=== PATIENT | female | born 1975 | race Caucasian/White ===

== ENCOUNTER 2016-05-15 16:16 | Emergency (ER) | payer MEDICAID ==
[~2016-05-15] VITALS: Ht 165.1 cm; Wt 160.0 kg
[~2016-05-15 16:16] MED LIST: ALBU6.7H INH; ASPI81 CHEW; HYDR-2768 PO; LANTUS2P SC; LEVEMIR SQ; LEXA10TA PO; LIPI10TA PO; LISI2.5T3 PO; NICO14DI18 TD; NOVOLOGP2 SQ; RITA20TA PO; ZOLP10TA3 PO
[2016-05-15 16:17] VITALS: BP 175/91; PULSE 95; RESP 20; TEMP 98.1; O2SAT 96
[2016-05-15] MEDS ORDERED: IPRA0.06 EACH NARE (17:10)
[2016-05-15] MEDS ORDERED: AMOX875T PO (17:10)
--- NOTE | 2016-05-15 17:11 | PD ---
HPI Chief Complaint: Cold / Flu Symptoms Time Seen by Provider: 16:35 Travel History International Travel<30 days: No Contact w/Intl Traveler<30days: No Traveled to known affect area: No History of Present Illness HPI Patient is a 41 year old female presenting to the emergency room evaluation of sore throat, cough, nasal congestion. Patient states her symptoms started Saturday, she reports subjective fevers on Saturday and Saturday. Fevers have since resolved but she continues to have a cough and sore throat. Or, vomiting , chest pain, shortness of breath, abdominal pain, diarrhea. PFSH Past Medical History Hx Anticoagulant Therapy: No ADHD: Yes Asthma: Yes Blood Disorders: No Anxiety: No Depression: No Heart Rhythm Problems: No Cancer: Yes (cervical cancer 2006) Cardiovascular Problems: Yes High Cholesterol: No Chemotherapy: No Chest Pain: No Congestive Heart Failure: No COPD: No Cerebrovascular Accident: No Diabetes: Yes Diminished Hearing: No Endocrine: Yes GERD: Yes Genitourinary: No Headaches: Yes Hypertension: Yes Immune Disorder: No Musculoskeletal: No Neurologic: Yes (seizures as a child, migraines) Psychiatric: No Reproductive: Yes (leep early stage cervical cancer 2006) Respiratory: Yes Immunizations Current: Yes Migraines: Yes ("family hx") Radiation Therapy: No Seizures: Yes ("as a toddler") Sleep Apnea: No Thyroid Disease: No ?: Not LMP: 05/13/16 : 5 Para: 4 Miscarriage: 1 Tubal Ligation: Yes (2006) Past Surgical History Gynecologic Surgery: Yes (leep) Hysterectomy: No Other Surgery: Yes (tubal ligation , le) Social History Alcohol Use: No Tobacco Use: Yes Substance Use: Yes (MARIJUANA occasionally) Allergies-Medications (Allergen,Severity, Reaction): Coded Allergies: Codeine (Verified Allergy, Severe, "LETHARGIC" "VOMITING, 11/01/15) Reported Meds & Prescriptions Reported Meds & Active Scripts Active Nicotine Transdermal Syst (Nicotine) 14 Mg/24 H Dis 14 Mg TD DAILY 7 Days Lipitor 10 Mg Tab (Atorvastatin Calcium) 10 Mg Tab 10 Mg PO HS Aspirin Low Strength (Aspirin) 81 Mg Chw 81 Mg CHEW DAILY 30 Days Lexapro (Escitalopram Oxalate) 10 Mg Tab 10 Mg PO DAILY Ambien 10 Mg Tab (Zolpidem Tartrate) 10 Mg Tab 10 Mg PO HS Ritalin (Methylphenidate HCl) 20 Mg Tab 20 Tab PO BID Proventil Hfa (Albuterol Sulfate) 6.7 Gm Aero 2 Puff INH Q4H * SHAKE WELL BEFORE USE * Reported Lantus (Insulin Glargine) 100 Units/Ml Inj 20 Unit SC HS Hctz (Hydrochlorothiazide) 25 Mg Tab Unknown Dose PO DAILY Lisinopril 2.5 mg (Lisinopril) 2.5 Mg Tab 1 Tab PO DAILY Novolog (Insulin Aspart) 100 Units/Ml Inj 1 U SQ DIRECTED 150-199=1 unit 200-249= 3 units 250-299=5 units 300-349=7 units >349=9 units Levemir (Insulin Detemir) Inj 20 SQ HS Review of Systems Except as stated in HPI: all other systems reviewed are Neg General / Constitutional: No: Fever, Chills HENT: Positive: Sore Throat, Rhinitis, Congestion, No: Headaches Cardiovascular: No: Chest Pain or Discomfort Respiratory: Positive: Cough, No: Shortness of Breath, Wheezing Gastrointestinal: No: Nausea, Vomiting, Diarrhea, Abdominal Pain Musculoskeletal: No: Myalgias Physical Exam Narrative GENERAL: Well-nourished, well-developed patient. SKIN: Warm and dry. HEAD: Normocephalic. EYES: No scleral icterus. No injection or drainage. ENT: Mucosa pink and moist. Moderate erythema to posterior pharynx, no tonsillar enlargement, no exudates. No uvular edema. No uvular, palatal, or tonsillar deviation. Airway patent. Nasal turbinates appear normal without nasal blood, purulent drainage or septal hematoma. NECK: Supple, trachea midline. No JVD or lymphadenopathy. CARDIOVASCULAR: Regular rate and rhythm without murmurs, gallops, or rubs. RESPIRATORY: Breath sounds equal bilaterally. No accessory muscle use. GASTROINTESTINAL: Abdomen soft, non-tender, nondistended. MUSCULOSKELETAL: No cyanosis, or edema. BACK: Nontender without obvious deformity. No CVA tenderness. Data Data Last Documented VS Vital Signs Date Time Temp Pulse Resp B/P Pulse Ox O2 Delivery O2 Flow Rate FiO2 05/15/16 16:17 98.1 95 20 175/91 96 Room Air MDM Medical Decision Making Medical Screen Exam Complete: Yes Emergency Medical Condition: Yes Interpretation(s) Vital Signs Date Time Temp Pulse Resp B/P Pulse Ox O2 Delivery O2 Flow Rate FiO2 05/15/16 16:17 98.1 95 20 175/91 96 Room Air Differential Diagnosis Viral URI versus pharyngitis versus sinusitis versus bronchitis versus other Narrative Course Patient is a 41-year-old female presenting to emergency department for evaluation of cough and cold symptoms. Physical examination appears most consistent with a viral syndrome. Patient was encouraged to continue with symptomatic management. She was encouraged to follow-up with her primary doctor or return to emergency department for new or worsening symptoms. Patient will be given a prescription for a backup antibiotic, she was advised that if she did begin to take it that she complete the full course of therapy he had patient verbalized understanding of these instructions. She is stable for discharge. Diagnosis Primary Impression: Upper respiratory infection with cough and congestion Additional Impression: Pharyngitis Qualified Code: J02.9 - Pharyngitis, unspecified etiology Referrals: Primary Care Physician Patient Instructions: General Instructions, Pharyngitis (ED), Upper Respiratory Infection (ED) Departure Forms: Tests/Procedures, Work Release Enter return to work date: May 16, 2016 Additional Instructions: Continue symptomatic management Follow-up with a primary care doctor Return to emergency department for any new or worsening symptoms Take medications as directed Med/Other Pt SpecificInfo: Prescription(s) given Scripts Amoxicillin 875 Mg [id number] Mg PO BID 10 Days Ref 0 Prov:An Castro 05/15/16 Ipratropium Nasal 0.06% Spray1 [place] EACH NARE TID #1 BOTTLE Ref 0 Prov:An Castro 05/15/16 Disposition: 01 DISCHARGE HOME Condition: Stable An Castro May 15, 2016 17:11
== END 2016-05-15 18:04 | disposition home or self-care (01) ==
LOC: NEPB 16:16
DX: J06.9 Acute upper respiratory infection, unspecified (principal); J02.9 Acute pharyngitis, unspecified; Z72.0 Tobacco use
CPT/HCPCS: 99282

== ENCOUNTER 2017-06-01 15:40 | Emergency (ER) | payer SELFPAY ==
[~2017-06-01] VITALS: Ht 165.1 cm; Wt 145.0 kg
[~2017-06-01 15:40] MED LIST changes: +AMOX875T PO; +IPRA0.06 EACH NARE
[2017-06-01 15:49] VITALS: BP 146/89; PULSE 87; RESP 16; TEMP 98.2; O2SAT 96
[2017-06-01 16:40] LABS: BILIRUBIN, URINE NEG (NEG); BLOOD, URINE TRACE (NEG); GLUCOSE,URINE 1000 OR GREATER mg/dL (NEG); KETONE, URINE 40 mg/dL (NEG); NITRITE,URINE NEG (NEG); PH, URINE 5.5 (5.0-8.5); URINE COLOR YELLOW (YELLW/STRAW); URINE LEUKOCYTE ESTERASE NEG (NEG)
[2017-06-01 16:48] LABS: RBC, URINE 0-3 /hpf (0-3); WBC, URINE 0-2 /hpf (0-5)
[2017-06-01 16:49] LABS: BACTERIA, URINE MOD /hpf
[2017-06-01 18:00] VITALS: BP 140/84; PULSE 86; RESP 16; O2SAT 96
[2017-06-01] MEDS ORDERED: LIPI10TA PO (18:25)
[2017-06-01] MEDS ORDERED: LISI2.5T3 PO (18:25)
[2017-06-01] MEDS ORDERED: LANTUS2P SQ (18:25)
[2017-06-01] MEDS ORDERED: HUMALOG SQ (18:25)
[2017-06-01] MEDS ORDERED: DAPA1TAB PO (18:25)
[2017-06-01] MEDS ORDERED: SITA50TA4 PO (18:25)
[2017-06-01] MEDS ORDERED: DIFL150T PO (18:27)
--- NOTE | 2017-06-01 18:27 | PD ---
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 Patient has been taking [id number] treatments for presumed vaginal candidiasis without. She is diabetic, she states that she went to [place] last month and had some binging of there and since then her sugars been little bit more elevated and she has had discharge. She takes oral anti-hyperglycemics, states her blood sugar usually runs about 160. She denies any abdominal pain nausea vomiting diarrhea constipation or possibility for . Symptoms mild, duration is a month, not relieved with [id number] medications, associated signs and symptoms as above. PFSH Past Medical History Hx Anticoagulant Therapy: No ADHD: Yes Asthma: Yes Blood Disorders: No Anxiety: No Depression: No Heart Rhythm Problems: No Cancer: Yes (cervical cancer 2006) Cardiovascular Problems: Yes High Cholesterol: No Chemotherapy: No Chest Pain: No Congestive Heart Failure: No COPD: No Cerebrovascular Accident: No Diabetes: Yes Patient Takes Glucophage: No Diminished Hearing: No Endocrine: Yes Gastrointestinal Disorders: No GERD: Yes Genitourinary: No Headaches: Yes Hypertension: Yes Immune Disorder: No Implanted Vascular Access Dvce: No Musculoskeletal: No Neurologic: Yes (seizures as a child, migraines) Psychiatric: No Reproductive: Yes (leep early stage cervical cancer 2006) Respiratory: Yes Immunizations Current: Yes Migraines: Yes ("family hx") Radiation Therapy: No Seizures: Yes ("as a toddler") Sleep Apnea: No Thyroid Disease: No Influenza Vaccination: No ?: Not LMP: 04/25/17 : 5 Para: 4 Miscarriage: 1 Tubal Ligation: Yes (2006) Past Surgical History Gynecologic Surgery: Yes (leep) Hysterectomy: No Other Surgery: Yes (tubal ligation , le) Social History Alcohol Use: No Tobacco Use: Yes Substance Use: Yes (MARIJUANA occasionally) Allergies-Medications (Allergen,Severity, Reaction): Coded Allergies: codeine (Unverified Allergy, Severe, "LETHARGIC" "VOMITING, 06/01/17) Reported Meds & Prescriptions Reported Meds & Active Scripts Active Flagyl (Metronidazole) 500 Mg Tab 500 Mg PO BID 7 Days Diflucan (Fluconazole) 150 Mg Tab 150 Mg PO ONCE Take on 06/08/2017 Reported Farxiga (Dapagliflozin) 5 Mg Tab Unknown Dose PO DAILY Janumet Xr (Sitagliptin-Metformin ER) 50-1,000 Mg Tab Unknown Dose PO DAILY Lisinopril 2.5 Mg Tab 2.5 Mg PO DAILY Lipitor (Atorvastatin Calcium) 10 Mg Tab 10 Mg PO HS Lantus Inj (Insulin Glargine) 1,000 Unit/10 Ml Vial 20 Units SQ HS Humalog Inj (Insulin Human Lispro) 1,000 Unit/10 Ml Vial 2-12 Units SQ ACHS Max dose at bedtime:( )units; sugars < 70,(0)units; sugars 150-199,(2)units; sugars 200-249,(4)units; sugars 250-299,(7)units; sugars 300-349,(10)units; sugars more than 349,(12)units. Review of Systems Except as stated in HPI: all other systems reviewed are Neg Physical Exam Narrative GENERAL: Well-nourished, well-developed patient. Morbidly obese, no obvious distress SKIN: Focused skin assessment warm/dry. HEAD: Normocephalic. EYES: No scleral icterus. No injection or drainage. NECK: Supple, trachea midline. No JVD or lymphadenopathy. CARDIOVASCULAR: Regular rate and rhythm without murmurs, gallops, or rubs. RESPIRATORY: Breath sounds equal bilaterally. No accessory muscle use. GASTROINTESTINAL: Abdomen soft, non-tender, nondistended. GENITOURINARY: Exam performed with female nurse energy scheduler present all times, milky white and curd-like discharge, consistent with BV, no bimanual tenderness no cervical motion tenderness, no vaginal lesion. No vaginal bleeding, cervix is closed MUSCULOSKELETAL: No cyanosis, or edema. BACK: Nontender without obvious deformity. No CVA tenderness. Data Data Last Documented VS Vital Signs Date Time Temp Pulse Resp B/P (MAP) Pulse Ox O2 Delivery O2 Flow Rate FiO2 06/01/17 18:00 86 16 140/84 (102) 96 Room Air 06/01/17 15:49 98.2 Orders Orders Urinalysis - C+S If Indicated (06/01/17 16:24) Ed Urine Pregnancytest Poc (06/01/17 16:24) Urine Culture (06/01/17 16:30) Bedside Glucose YANI.CSUGAR (06/01/17 17:48) Fluconazole (Diflucan) (06/01/17 18:30) Wet Prep Profile (06/01/17 18:26) Gc And Chlamydia Pcr (06/01/17 18:26) Ed Discharge Order (06/01/17 18:28) Fluconazole (Diflucan) (06/01/17 18:30) Labs Laboratory Tests Test 06/01/17 16:30 06/01/17 18:25 Urine Collection Type CLEAN CATCH Urine Color YELLOW Urine Turbidity CLEAR Urine pH 5.5 Urine Specific [place] 1.025 Urine Protein NEG mg/dL Urine Glucose (UA) 1000 OR GREATER mg/dL Urine Ketones 40 mg/dL Urine Occult Blood TRACE Urine Nitrite NEG Urine Bilirubin NEG Urine Urobilinogen 0.2 MG/DL Urine Leukocyte Esterase NEG Urine RBC 0-3 /hpf Urine WBC 0-2 /hpf Urine Squamous Epithelial Cells 6-8 /hpf Urine Bacteria MOD /hpf Urine Yeast (Budding) OCC Microscopic Urinalysis Comment CULTURE INDICATED Urine Collection Time 16:30 Clue Cells (Wet Prep) NONE SEEN Vaginal Trichomonas (Wet Prep) NONE SEEN Vaginal Yeast (Wet Prep) NONE SEEN MDM Medical Decision Making Medical Screen Exam Complete: Yes Emergency Medical Condition: Yes Differential Diagnosis Hyperglycemia, BV, CV, STD peer Narrative Course Patient room to the emergency department, discussed importance of having Pap smear mandatory basis, has symptoms of BV in CV, will empirically cover both, blood sugars fairly well controlled to 60, discussed tighter control may limit these infections in the future and she needs follow-up with her primary care physician. Abdomen benign, no indication further workup at this time. She stable for discharge Diagnosis Primary Impression: Candidal vaginitis Med/Other Pt SpecificInfo: Prescription(s) given Scripts Metronidazole (Flagyl) 500 Mg Tab 500 MG PO BID for Infection for 7 Days, #14 TAB 0 Refills Prov: Sulaiman Sandy MD 06/01/17 Fluconazole (Diflucan) 150 Mg Tab 150 MG PO ONCE for Infection, #1 TAB 0 Refills Take on 06/08/2017 Prov: Sulaiman Sandy MD 06/01/17 Disposition: 01 DISCHARGE HOME Condition: Stable Sulaiman Sandy MD Jun 01, 2017 18:27
[2017-06-01] MEDS ORDERED: METR-1 PO (18:28)
[2017-06-01] MEDS ORDERED: FLUCONAZOLE 200 MG TAB PO ONE (18:30)
[2017-06-01] MEDS ORDERED: FLUCONAZOLE 100 MG TAB PO ONE (18:30)
== END 2017-06-01 18:43 | disposition home or self-care (01) ==
LOC: PHED 15:40
DX: B37.3 Candidiasis of vulva and vagina (principal); R82.99 Other abnormal findings in urine; E11.9 Type 2 diabetes mellitus without complications; J45.909 Unspecified asthma, uncomplicated; F90.9 Attention-deficit hyperactivity disorder, unspecified type; E66.01 Morbid (severe) obesity due to excess calories; I10 Essential (primary) hypertension; K21.9 Gastro-esophageal reflux disease without esophagitis; Z85.41 Personal history of malignant neoplasm of cervix uteri; Z72.0 Tobacco use; Z79.4 Long term (current) use of insulin
CPT/HCPCS: 81001; 84703; 87086; 87210; 87491; 87591; 99283

== ENCOUNTER 2017-06-14 22:49 | Emergency (ER) | payer MEDICAID ==
[~2017-06-14] VITALS: Ht 165.1 cm; Wt 150.0 kg
[~2017-06-14 22:49] MED LIST changes: -ALBU6.7H INH; -AMOX875T PO; -ASPI81 CHEW; +DAPA1TAB PO; +DIFL150T PO; +HUMALOG SQ; -HYDR-2768 PO; -IPRA0.06 EACH NARE; -LANTUS2P SC; +LANTUS2P SQ; -LEVEMIR SQ; -LEXA10TA PO; +METR-1 PO; -NICO14DI18 TD; -NOVOLOGP2 SQ; -RITA20TA PO; +SITA50TA4 PO; -ZOLP10TA3 PO
[2017-06-14 22:59] VITALS: BP 164/84; PULSE 88; RESP 16; TEMP 98.5; O2SAT 96
--- NOTE | 2017-06-15 00:44 | PD ---
HPI Chief Complaint: Diabetic Time Seen by Provider: 00:31 Travel History International Travel<30 days: No Contact w/Intl Traveler<30days: No Traveled to known affect area: No History of Present Illness HPI 42-year-old female complains of elevated blood sugar. Patient's diabetic and ran out of her medication for the past 3 weeks. Patient was on Humalog, Lantus , Janumet, Farxigar. Patient states that her blood sugar at home has been running between 350-560. Patient denies any headache. Patient denies any chest pain or shortness of breath. Patient denies any coughing congestion. Patient denies abdominal pain. Patient denies any nausea vomiting diarrhea. Patient denies any dysuria. PFSH Past Medical History Hx Anticoagulant Therapy: No ADHD: Yes Asthma: Yes Blood Disorders: No Anxiety: No Depression: No Heart Rhythm Problems: No Cancer: Yes (cervical cancer 2006) Cardiovascular Problems: Yes High Cholesterol: No Chemotherapy: No Chest Pain: No Congestive Heart Failure: No COPD: No Cerebrovascular Accident: No Diabetes: Yes Patient Takes Glucophage: No Diminished Hearing: No Endocrine: Yes Gastrointestinal Disorders: No GERD: Yes Genitourinary: No Headaches: Yes Hypertension: Yes Immune Disorder: No Implanted Vascular Access Dvce: No Musculoskeletal: No Neurologic: Yes (seizures as a child, migraines) Psychiatric: No Reproductive: Yes (leep early stage cervical cancer 2006) Respiratory: Yes Immunizations Current: Yes Migraines: Yes ("family hx") Radiation Therapy: No Seizures: Yes ("as a toddler") Sleep Apnea: No Thyroid Disease: No Tetanus Vaccination: Unknown Influenza Vaccination: No ?: Not LMP: 06/12/2017 : 5 Para: 4 Miscarriage: 1 Tubal Ligation: Yes (2006) Past Surgical History Gynecologic Surgery: Yes (leep) Hysterectomy: No Other Surgery: Yes (tubal ligation ', leAP) Social History Alcohol Use: No Tobacco Use: Yes Substance Use: Yes (MARIJUANA occasionally) Allergies-Medications (Allergen,Severity, Reaction): Coded Allergies: codeine (Unverified Allergy, Severe, "LETHARGIC" "VOMITING, 06/14/17) Reported Meds & Prescriptions Reported Meds & Active Scripts Active Janumet (Sitagliptin-Metformin) 50-1,000 Mg Tab 1 Tab PO BID Farxiga (Dapagliflozin) 5 Mg Tab 5 Mg PO DAILY Humalog Inj (Insulin Human Lispro) 1,000 Unit/10 Ml Vial 2-12 Units SQ ACHS Max dose at bedtime:( )units; sugars < 70,(0)units; sugars 150-199,(2)units; sugars 200-249,(4)units; sugars 250-299,(7)units; sugars 300-349,(10)units; sugars more than 349,(12)units. Flagyl (Metronidazole) 500 Mg Tab 500 Mg PO BID 7 Days Diflucan (Fluconazole) 150 Mg Tab 150 Mg PO ONCE Take on 06/08/2017 Reported Farxiga (Dapagliflozin) 5 Mg Tab 1 Tab PO DAILY Janumet Xr (Sitagliptin-Metformin ER) 50-1,000 Mg Tab Unknown Dose PO DAILY Lisinopril 2.5 Mg Tab 2.5 Mg PO DAILY Lipitor (Atorvastatin Calcium) 10 Mg Tab 10 Mg PO HS Lantus Inj (Insulin Glargine) 1,000 Unit/10 Ml Vial 20 Units SQ HS Review of Systems General / Constitutional: No: Fever Eyes: No: Visual changes HENT: No: Headaches Cardiovascular: No: Chest Pain or Discomfort Respiratory: No: Shortness of Breath Gastrointestinal: No: Abdominal Pain Genitourinary: No: Dysuria Musculoskeletal: No: Pain Skin: No Rash Neurologic: No: Weakness Psychiatric: No: Depression Endocrine: No: Polydipsia Hematologic/Lymphatic: No: Easy Bruising Physical Exam Narrative GENERAL: Well-nourished, well-developed patient. SKIN: Focused skin assessment warm/dry. HEAD: Normocephalic. EYES: No scleral icterus. No injection or drainage. NECK: Supple, trachea midline. No JVD or lymphadenopathy. CARDIOVASCULAR: Regular rate and rhythm without murmurs, gallops, or rubs. RESPIRATORY: Breath sounds equal bilaterally. No accessory muscle use. GASTROINTESTINAL: Abdomen soft, non-tender, nondistended. MUSCULOSKELETAL: No cyanosis, or edema. BACK: Nontender without obvious deformity. No CVA tenderness. Neurologic exam normal. Data Data Last Documented VS Vital Signs Date Time Temp Pulse Resp B/P (MAP) Pulse Ox O2 Delivery O2 Flow Rate FiO2 06/15/17 00:47 98 Room Air 06/14/17 22:59 98.5 88 16 164/84 (110) Orders Orders Complete Blood Count With Diff (06/15/17 00:39) Basic Metabolic Panel (Bmp) (06/15/17 00:39) Beta Hydroxybutyrate (Acetone) (06/15/17 00:39) Iv Access Insert/Monitor (06/15/17 00:39) Ecg Monitoring (06/15/17 00:39) Oximetry (06/15/17 00:39) Sodium Chlor 0.9% 1000 Ml Inj (Ns 1000 M (06/15/17 00:45) Acetaminophen (Tylenol) (06/15/17 00:45) Insulin Human Regular Inj (Novolin R Inj (06/15/17 02:15) Labs Laboratory Tests Test 06/15/17 00:45 White Blood Count 7.0 TH/MM3 Red Blood Count 4.82 MIL/MM3 Hemoglobin 14.2 GM/DL Hematocrit 41.9 % Mean Corpuscular Volume 87.0 FL Mean Corpuscular Hemoglobin 29.5 PG Mean Corpuscular Hemoglobin Concent 33.9 % Red Cell Distribution Width 13.8 % Platelet Count 198 TH/MM3 Mean Platelet Volume 10.2 FL Neutrophils (%) (Auto) 63.6 % Lymphocytes (%) (Auto) 24.1 % Monocytes (%) (Auto) 5.5 % Eosinophils (%) (Auto) 5.7 % Basophils (%) (Auto) 1.1 % Neutrophils # (Auto) 4.5 TH/MM3 Lymphocytes # (Auto) 1.7 TH/MM3 Monocytes # (Auto) 0.4 TH/MM3 Eosinophils # (Auto) 0.4 TH/MM3 Basophils # (Auto) 0.1 TH/MM3 CBC Comment DIFF FINAL Differential Comment Blood Urea Nitrogen 12 MG/DL Creatinine 0.83 MG/DL Random Glucose 510 MG/DL Calcium Level 8.9 MG/DL Sodium Level 131 MEQ/L Potassium Level 4.6 MEQ/L Chloride Level 98 MEQ/L Carbon Dioxide Level 24.9 MEQ/L Anion Gap 8 MEQ/L Estimat Glomerular Filtration Rate 76 ML/MIN B-Hydroxybutyrate 0.13 MMOL/L [facility] Medical Decision Making Medical Screen Exam Complete: Yes Emergency Medical Condition: Yes Interpretation(s) 2:07 AM. CBC within normal limits. Sodium 131. Glucose 510. Bicarb 24.9. Anion gap 8. Beta hydroxybutyrate 0.13. Differential Diagnosis Differential diagnosis including hyperglycemia, DKA. Narrative Course 42-year-old female complains of elevated blood sugar. History of diabetes. Novolin R 10 units IV given. Diagnosis Primary Impression: Hyperglycemia Patient Instructions: General Instructions Additional Instructions: Take medications as directed. Accu-Chek blood sugar daily. Follow-up with local physician. Return if worse. Med/Other Pt SpecificInfo: Prescription(s) given Scripts Sitagliptin-Metformin (Janumet) 50-1,000 Mg Tab 1 TAB PO BID for Blood Sugar Management, #60 TAB 0 Refills Prov: Josse Salcedo MD 06/15/17 Dapagliflozin (Farxiga) 5 Mg Tab 5 MG PO DAILY for Blood Sugar Management, #30 TAB 0 Refills Prov: Josse Salcedo MD 06/15/17 Insulin Lispro (Human) Inj (Humalog Inj) 1,000 Unit/10 Ml Vial 2-12 UNITS SQ ACHS for Blood Sugar Management, #1 VIAL 0 Refills Max dose at bedtime:( )units; sugars < 70,(0)units; sugars 150-199,(2)units; sugars 200-249,(4)units; sugars 250-299,(7)units; sugars 300-349,(10)units; sugars more than 349,(12)units. Prov: Josse Salcedo MD 06/15/17 Disposition: 01 DISCHARGE HOME Condition: Stable Josse Salcedo MD Jun 15, 2017 00:44
[2017-06-15] MEDS ORDERED: SODIUM CHLOR 0.9% 1000 ML INJ 1,000 ML IV ONE (00:45)
[2017-06-15] MEDS ORDERED: ACETAMINOPHEN 325 MG TAB PO ONE (00:45)
[2017-06-15 00:47] VITALS: O2SAT 98
[2017-06-15 01:12] LABS: AUTOMATED NEUTROPHIL # 4.5 TH/MM3 (1.8-7.7); BASOPHIL # 0.1 TH/MM3 (0-0.2); BASOPHIL % 1.1 % (0.0-2.0); EOSINOPHIL # 0.4 TH/MM3 (0-0.4); EOSINOPHIL % 5.7 % (0.0-4.0); HEMATOCRIT 41.9 % (35.0-46.0); HEMOGLOBIN 14.2 GM/DL (11.6-15.3); LYMPH % 24.1 % (9.0-44.0); LYMPHOCYTE # 1.7 TH/MM3 (1.0-4.8); MEAN CORPUSCULAR HEMOGLOBIN 29.5 PG (27.0-34.0); MEAN CORPUSCULAR HGB CONC 33.9 % (32.0-36.0); MEAN PLATELET VOLUME 10.2 FL (7.0-11.0); MONO % 5.5 % (0.0-8.0); MONOCYTE # 0.4 TH/MM3 (0-0.9); NEUT % 63.6 % (16.0-70.0); PLATELET COUNT 198 TH/MM3 (150-450); RED BLOOD COUNT 4.82 MIL/MM3 (4.00-5.30); RED CELL DISTRIBUTION WIDTH 13.8 % (11.6-17.2)
[2017-06-15 01:32] LABS: BICARBONATE 24.9 MEQ/L (21.0-32.0); CALCIUM 8.9 MG/DL (8.5-10.1); CREATININE 0.83 MG/DL (0.50-1.00)
[2017-06-15] MEDS ORDERED: HUMALOG SQ (02:15)
[2017-06-15] MEDS ORDERED: INSULIN HUMAN REGULAR 1,000 UNITS/10 ML VIAL IV PUSH ONE (02:15)
[2017-06-15] MEDS ORDERED: DAPA1TAB PO (02:18)
[2017-06-15] MEDS ORDERED: JANU50TA8 PO (02:18)
== END 2017-06-15 03:03 | disposition home or self-care (01) ==
LOC: NEPC 22:49
DX: E11.65 Type 2 diabetes mellitus with hyperglycemia (principal); F12.90 Cannabis use, unspecified, uncomplicated; Z79.4 Long term (current) use of insulin; Z72.0 Tobacco use; Z85.41 Personal history of malignant neoplasm of cervix uteri
CPT/HCPCS: 80048; 82010; 85025; 96361; 96374; 99284; J1815; J7030

== ENCOUNTER 2017-07-09 08:29 | Emergency (ER) | payer MEDICAID ==
[~2017-07-09] VITALS: Ht 165.1 cm; Wt 146.0 kg
[~2017-07-09 08:29] MED LIST changes: +JANU50TA8 PO
[2017-07-09 08:35] VITALS: BP 181/89; PULSE 83; RESP 20; TEMP 98.4; O2SAT 99
[2017-07-09] MEDS ORDERED: BACT800T5 PO (09:21)
[2017-07-09] MEDS ORDERED: IBUP1TAB7 PO (09:21)
--- NOTE | 2017-07-09 09:21 | PD ---
HPI Chief Complaint: Skin Problem Time Seen by Provider: 09:04 Travel History International Travel<30 days: No Contact w/Intl Traveler<30days: No Traveled to known affect area: No History of Present Illness HPI 42-year-old female presents to the emergency department with complaint of an abscess to the left armpit 1 week. Says she has history of abscesses but they usually resolve on their own. She has never had one get this big. Reports nausea without vomiting. Denies fevers. Has tried topical Neosporin. Says the abscess started draining today after she removed pressure. Rates pain 8/ 10. Describes as pressure and throbbing. Pain is constantly aggravated, especially when she puts her arm down. Primary CARE providers Dr. Workman. Allergies to codeine. History of insulin-dependent diabetes. Reports being compliant with medications and blood sugar checks. Says her blood sugars have been running in the low 200s. PFSH Past Medical History Hx Anticoagulant Therapy: No ADHD: Yes Asthma: Yes Blood Disorders: No Anxiety: No Depression: No Heart Rhythm Problems: No Cancer: Yes (cervical cancer 2006) Cardiovascular Problems: Yes High Cholesterol: No Chemotherapy: No Chest Pain: No Congestive Heart Failure: No COPD: No Cerebrovascular Accident: No Diabetes: Yes Patient Takes Glucophage: Yes Diminished Hearing: No Endocrine: Yes Gastrointestinal Disorders: No GERD: Yes Genitourinary: No Headaches: Yes Hypertension: Yes Immune Disorder: No Implanted Vascular Access Dvce: No Musculoskeletal: No Neurologic: Yes (seizures as a child, migraines) Psychiatric: No Reproductive: Yes (leep early stage cervical cancer 2006) Respiratory: Yes Immunizations Current: Yes Migraines: Yes ("family hx") Radiation Therapy: No Seizures: Yes ("as a toddler") Sleep Apnea: No Thyroid Disease: No Tetanus Vaccination: Unknown Influenza Vaccination: No ?: Not LMP: 06/10/17 : 5 Para: 4 Miscarriage: 1 Tubal Ligation: Yes (2006) Past Surgical History Gynecologic Surgery: Yes (leep) Hysterectomy: No Other Surgery: Yes (tubal ligation , le) Social History Alcohol Use: No Tobacco Use: Yes Substance Use: Yes (MARIJUANA occasionally) Allergies-Medications (Allergen,Severity, Reaction): Coded Allergies: codeine (Unverified Allergy, Severe, "LETHARGIC" "VOMITING, 5/15/18) Reported Meds & Prescriptions Reported Meds & Active Scripts Active Ibuprofen 800 Mg Tab 800 Mg PO Q6HR PRN Bactrim DS (Sulfamethoxazole-Trimethoprim) 800-160 Mg Tab 1 Tab PO BID 10 Days Janumet (Sitagliptin-Metformin) 50-1,000 Mg Tab 1 Tab PO BID Farxiga (Dapagliflozin) 5 Mg Tab 5 Mg PO DAILY Humalog Inj (Insulin Human Lispro) 1,000 Unit/10 Ml Vial 2-12 Units SQ ACHS Max dose at bedtime:( )units; sugars < 70,(0)units; sugars 150-199,(2)units; sugars 200-249,(4)units; sugars 250-299,(7)units; sugars 300-349,(10)units; sugars more than 349,(12)units. Reported Farxiga (Dapagliflozin) 5 Mg Tab 1 Tab PO DAILY Janumet Xr (Sitagliptin-Metformin ER) 50-1,000 Mg Tab Unknown Dose PO DAILY Lisinopril 2.5 Mg Tab 2.5 Mg PO DAILY Lipitor (Atorvastatin Calcium) 10 Mg Tab 10 Mg PO HS Lantus Inj (Insulin Glargine) 1,000 Unit/10 Ml Vial 20 Units SQ HS Review of Systems Except as stated in HPI: all other systems reviewed are Neg Physical Exam Narrative GENERAL: Well-nourished, well-developed female patient, in no acute distress; afebrile, nontoxic-appearing SKIN: There is an indurated area to the left axilla which measures about 2 cm in diameter. It is fluctuant and there is pointing and moderate amount of purulent drainage.. There is a zone of inflammation around it but no lymphangitis. HEAD: Atraumatic. Normocephalic. EYES: Pupils equal and round. No scleral icterus. No injection or drainage. ENT: Mucosa pink and moist. Airway patent. NECK: Trachea midline. CARDIOVASCULAR: Regular rate. RESPIRATORY: No accessory muscle use. GASTROINTESTINAL: Obese. MUSCULOSKELETAL: No obvious deformities. No clubbing. No cyanosis. No edema. NEUROLOGICAL: Awake and alert. Oriented 3. No obvious cranial nerve deficits. Motor grossly within normal limits. Normal speech. PSYCHIATRIC: Appropriate mood and affect; insight and judgment normal. Data Data Last Documented VS Vital Signs Date Time Temp Pulse Resp B/P (MAP) Pulse Ox O2 Delivery O2 Flow Rate FiO2 07/09/17 08:35 98.4 83 20 181/89 (119) 99 Orders Orders Ketorolac Inj (Toradol Inj) (07/09/17 09:30) Wound Culture And Gram Stain (07/09/17 09:22) Ed Discharge Order (07/09/17 09:22) [facility] Medical Decision Making Medical Screen Exam Complete: Yes Emergency Medical Condition: Yes Medical Record Reviewed: Yes Differential Diagnosis Abscess, folliculitis, hidradenitis Narrative Course 42-year-old female with left axillary abscess. It started draining a moderate amount of purulent drainage. I squeezed and drained completely. I do not feel it is necessary to incised and drained and packed the abscess. It is approximately 2 cm in diameter and the opening is large and continuously draining without pressure. Area of cellulitis marked with a surgical marker. Toradol ordered. Wound culture pending. Bactrim, ibuprofen prescribed for home. Instructed patient to follow up with primary care provider. Patient verbalizes understanding and agreement with treatment plan. Patient is medically cleared and stable for discharge. Discussed reasons to return to the emergency department. Patient agrees with treatment plan. The patients vital signs are stable and the patient is stable for outpatient follow-up and treatment. Patient discharged home, stable and in no acute distress. Diagnosis Primary Impression: Abscess of left axilla Referrals: [facility] Primary Care Physician Patient Instructions: Abscess (ED), Abscess Follow-up (ED), General Instructions Departure Forms: Tests/Procedures, Work Release Enter return to work date: July 10, 2017 Additional Instructions: Complete full course of antibiotics Warm compresses to the affected area Keep area clean and dry Ibuprofen or Tylenol as directed and as needed for pain and inflammation Follow-up with primary care provider Return to emergency department immediately with worsening of symptoms Med/Other Pt SpecificInfo: Prescription(s) given Scripts Ibuprofen (Ibuprofen) 800 Mg Tab 800 MG PO Q6HR Y for PAIN, #20 TAB 0 Refills Prov: Ange Mckeon 07/09/17 Sulfamethoxazole-Trimethoprim (Bactrim DS) 800-160 Mg Tab 1 TAB PO BID for Infection for 10 Days, #20 TAB 0 Refills Prov: Ange Mckeon 07/09/17 Disposition: 01 DISCHARGE HOME Condition: Stable Ange Mckeon July 09, 2017 09:21
[2017-07-09] MEDS ORDERED: KETOROLAC TROMETHAMINE 60 MG/2 ML (IM) VIAL IM ONE (09:30)
[2017-07-09 09:52] VITALS: BP 144/86
== END 2017-07-09 09:55 | disposition home or self-care (01) ==
LOC: NEPD 08:29
DX: L02.412 Cutaneous abscess of left axilla (principal); F12.90 Cannabis use, unspecified, uncomplicated; E11.9 Type 2 diabetes mellitus without complications; Z79.4 Long term (current) use of insulin; Z72.0 Tobacco use
CPT/HCPCS: 86403; 87070; 87186; 96372; 99283; J1885

== ENCOUNTER 2017-08-17 16:45 | Emergency (ER) | payer MEDICAID ==
[~2017-08-17] VITALS: Ht 165.1 cm; Wt 140.0 kg
[~2017-08-17 16:45] MED LIST changes: +BACT800T5 PO; -DIFL150T PO; +IBUP1TAB7 PO; -METR-1 PO
[2017-08-17 17:02] VITALS: BP 161/108; PULSE 83; RESP 14; TEMP 98.4; O2SAT 96
--- NOTE | 2017-08-17 17:35 | PD ---
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 Patient states that she has history of recurrent yeast infection. Patient has been seen in emergency room and given medication in the past. Patient states that his symptoms got better and get worse again. Patient has history of diabetes and has blood sugar has been high recently. Patient states that her blood sugar has been running in the 300s range. Patient denies any headache. Patient denies any chest pain or shortness of breath. Patient denies abdominal pain. Patient denies any back pain. Patient denies any fever chills. In reviewing medical records, wet prep and GC chlamydia PCR negative In the past. PFSH Past Medical History Hx Anticoagulant Therapy: No ADHD: Yes Asthma: Yes Blood Disorders: No Anxiety: No Depression: No Heart Rhythm Problems: No Cancer: Yes (cervical cancer 2006) Cardiovascular Problems: Yes (HTN) High Cholesterol: No Chemotherapy: No Chest Pain: No Congestive Heart Failure: No COPD: No Cerebrovascular Accident: No Diabetes: Yes Diminished Hearing: No Endocrine: Yes Gastrointestinal Disorders: No GERD: Yes Genitourinary: No Headaches: Yes Hypertension: Yes Immune Disorder: No Implanted Vascular Access Dvce: No Musculoskeletal: No Neurologic: Yes (seizures as a child, migraines) Psychiatric: No Reproductive: Yes (leep early stage cervical cancer 2006) Respiratory: Yes Immunizations Current: Yes Migraines: Yes ("family hx") Radiation Therapy: No Seizures: Yes ("as a toddler") Sleep Apnea: No Thyroid Disease: No ?: Not LMP: couple of months.. pre menopause : 5 Para: 4 Miscarriage: 1 Tubal Ligation: Yes (2006) Past Surgical History Gynecologic Surgery: Yes (leep) Hysterectomy: No Other Surgery: Yes (tubal ligation , le) Social History Alcohol Use: No Tobacco Use: Yes Substance Use: Yes (MARIJUANA occasionally) Allergies-Medications (Allergen,Severity, Reaction): Coded Allergies: codeine (Unverified Allergy, Severe, "LETHARGIC" "VOMITING, 08/17/17) Reported Meds & Prescriptions Reported Meds & Active Scripts Active Janumet (Sitagliptin-Metformin) 50-1,000 Mg Tab 1 Tab PO BID Farxiga (Dapagliflozin) 5 Mg Tab 5 Mg PO DAILY Humalog Inj (Insulin Human Lispro) 1,000 Unit/10 Ml Vial 2-12 Units SQ ACHS Max dose at bedtime:( )units; sugars < 70,(0)units; sugars 150-199,(2)units; sugars 200-249,(4)units; sugars 250-299,(7)units; sugars 300-349,(10)units; sugars more than 349,(12)units. Reported Lantus Inj (Insulin Glargine) 1,000 Unit/10 Ml Vial 20 Units SQ HS Review of Systems General / Constitutional: No: Fever Eyes: No: Visual changes HENT: No: Headaches Cardiovascular: No: Chest Pain or Discomfort Respiratory: No: Shortness of Breath Gastrointestinal: No: Abdominal Pain Genitourinary: Positive: Discharge, No: Dysuria Musculoskeletal: No: Pain Skin: No Rash Neurologic: No: Weakness Psychiatric: No: Depression Endocrine: No: Polydipsia Hematologic/Lymphatic: No: Easy Bruising Physical Exam Narrative GENERAL: Well-nourished, well-developed patient. SKIN: Focused skin assessment warm/dry. HEAD: Normocephalic. EYES: No scleral icterus. No injection or drainage. NECK: Supple, trachea midline. No JVD or lymphadenopathy. CARDIOVASCULAR: Regular rate and rhythm without murmurs, gallops, or rubs. RESPIRATORY: Breath sounds equal bilaterally. No accessory muscle use. GASTROINTESTINAL: Abdomen soft, non-tender, nondistended. MUSCULOSKELETAL: No cyanosis, or edema. BACK: Nontender without obvious deformity. No CVA tenderness. X RAY EXAMINER OF AIRCRAFT exam: Patient has small papular lesion on the superior position of the labia majora. Patient has thick whitish rash around the vulvar area and also labia area. Small amount of thick whitish discharge in the vaginal vault. Data Data Last Documented VS Vital Signs Date Time Temp Pulse Resp B/P (MAP) Pulse Ox O2 Delivery O2 Flow Rate FiO2 08/17/17 17:02 98.4 83 14 161/108 (125) 96 Orders Orders Basic Metabolic Panel (Bmp) (08/17/17 17:36) Labs Laboratory Tests Test 08/17/17 18:14 Blood Urea Nitrogen 9 MG/DL Creatinine 0.78 MG/DL Random Glucose 453 MG/DL Calcium Level 8.9 MG/DL Sodium Level 132 MEQ/L Potassium Level 4.3 MEQ/L Chloride Level 98 MEQ/L Carbon Dioxide Level 23.0 MEQ/L Anion Gap 11 MEQ/L Estimat Glomerular Filtration Rate 82 ML/MIN MDM Medical Decision Making Medical Screen Exam Complete: Yes Emergency Medical Condition: Yes Interpretation(s) 1903 p.m. Sodium 132. Bicarb 23.0. Glucose 453. Differential Diagnosis Differential diagnosis including bacterial vaginosis, [place] vaginitis, genital herpes, cervicitis, PID. Narrative Course 42-year-old female with recurrent vaginal discharge and painful lesion on the vaginal vault. Novolin R 10 units SQ given. Diagnosis Primary Impression: Folliculitis Additional Impressions: [place] vaginitis Hyperglycemia Patient Instructions: General Instructions Additional Instructions: Accu-Chek blood sugar daily and covers with sliding scale. Take medications as directed. Follow-up with personal physician. Return if worse. 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 [id number] Gyne-Lotrimin also. Med/Other Pt SpecificInfo: Prescription(s) given Scripts Sulfamethoxazole-Trimethoprim (Bactrim DS) 800-160 Mg Tab 1 TAB PO BID for Infection, #14 TAB 0 Refills Prov: Josse Salcedo MD 08/17/17 Fluconazole (Diflucan) 150 Mg Tab 150 MG PO Q3DAYS for Infection, #3 TAB 0 Refills Prov: Josse Salcedo MD 08/17/17 Disposition: 01 DISCHARGE HOME Condition: Stable Josse Salcedo MD Aug 17, 2017 17:34
[2017-08-17 18:58] LABS: CALCIUM 8.9 MG/DL (8.5-10.1); CREATININE 0.78 MG/DL (0.50-1.00)
[2017-08-17] MEDS ORDERED: BACT800T5 PO (19:13)
[2017-08-17] MEDS ORDERED: DIFL150T PO (19:13)
[2017-08-17] MEDS ORDERED: INSULIN HUMAN REGULAR 1,000 UNITS/10 ML VIAL SQ ONE (19:15)
== END 2017-08-17 19:43 | disposition home or self-care (01) ==
LOC: NEPD 16:45
DX: L73.9 Follicular disorder, unspecified (principal); B37.3 Candidiasis of vulva and vagina; E11.65 Type 2 diabetes mellitus with hyperglycemia; F12.90 Cannabis use, unspecified, uncomplicated; Z72.0 Tobacco use; Z79.4 Long term (current) use of insulin
CPT/HCPCS: 80048; 96372; 99283; J1815